=== PATIENT | male | born 1980 | race African-American/Black ===

== ENCOUNTER → 2018-07-12 | Outpatient (CLI) | payer OTHER | LOC: COL.RAD 09:00 | DX: M47.812 Spondylosis without myelopathy or radiculopathy, cervical region (principal); M48.02 Spinal stenosis, cervical region; M75.121 Complete rotator cuff tear or rupture of right shoulder, not specified as traumatic ==

== ENCOUNTER 2018-08-29 16:30 | Outpatient (RCR) | payer OTHER | END 2018-10-30 10:18 | disposition home or self-care (01) | LOC: WSPT 16:30 | DX: S43.421A Sprain of right rotator cuff capsule, initial encounter (principal); S13.9XXA Sprain of joints and ligaments of unspecified parts of neck, initial encounter ==

== ENCOUNTER 2020-05-27 10:10 | Emergency (ER) | payer BC ==
[~2020-05-27] VITALS: Ht 167.6 cm; Wt 68.2 kg
[2020-05-27 10:18] VITALS: TEMP 98.6
[2020-05-27 11:04] LABS: BASO % 0.3 % (0.0-2.0); EOS % 0.1 % (0-4.0); GRAN # 4.8 (1.4-6.5); GRAN % 63.7 % (42.2-75.2); HEMATOCRIT 46.8 % (42.0-52.0); HEMOGLOBIN 16.2 g/dl (13.5-18.0); LYMPH # 2.1 (1.2-3.4); LYMPH % 28.3 % (20.0-51.0); MEAN CELL VOLUME 90 fl (80.0-100.0); MEAN CORPUSCULAR HEMOGLOBIN 31 pg (27.0-31.0); MEAN CORPUSCULAR HGB CONC 35 g/dl (33.0-37.0); MONO # 0.6 (0.1-0.6); MONO % 7.3 % (1.7-9.3); PLATELET COUNT 229 K/mm3 (130-400); RED BLOOD COUNT 5.23 M/mm3 (4.20-5.60); REDCELL DISTRIBUTION WIDTH-CV 13.9 % (11.5-14.5)
[2020-05-27 11:15] LABS: ALANINE AMINOTRANSFERASE 28 U/L (4-49); ALBUMIN 4.8 gm/dL (3.5-5.0); ALKALINE PHOSPHATASE 47 U/L (50-136); ANION GAP 9 mmol/L (7-16); AST,SGOT 43 U/L (15-37); BILIRUBIN,TOTAL 0.8 mg/dL (0.0-1.0); BLOOD UREA NITROGEN 20 mg/dL (9-20); CALCIUM 9.9 mg/dL (8.4-10.2); CARBON DIOXIDE 30 mmol/L (22-30); CHLORIDE 99 mmol/L (98-107); CREATININE, serum 1.37 (0.66-1.25); GLUCOSE 101 mg/dL (74-106); LIPASE 78 U/L (23-300); POTASSIUM 3.8 mmol/L (3.4-5.0); SODIUM 138 mmol/L (137-145); TOTAL PROTEIN 8.2 gm/dL (6.4-8.2)
[2020-05-27 11:19] LABS: C-REACTIVE PROTEIN < 0.5 mg/dL (0.0-0.9)
[2020-05-27 11:33] VITALS: BP 128/78; PULSE 85
== END 2020-05-27 11:33 | disposition home or self-care (01) ==
LOC: COL.ER 10:10
PROVIDERS: Nurse Practitioner Primary Care
DX: R10.13 Epigastric pain (principal); R11.0 Nausea; F17.200 Nicotine dependence, unspecified, uncomplicated

== ENCOUNTER → 2020-05-28 | Outpatient (CLI) | payer BC | LOC: COL.RAD | DX: R10.9 Unspecified abdominal pain (principal) ==